=== PATIENT | female | born 1990 | race Caucasian/White ===

== ENCOUNTER → 2020-07-16 | Outpatient (CLI) | payer SELFPAY | LOC: M LABSMTC 08:30 | PROVIDERS: ATTEND Pediatrics | DX: Z20.828 Contact with and (suspected) exposure to other viral communicable diseases (principal) ==

== ENCOUNTER → 2022-05-31 | Outpatient (CLI) | payer OTHER | LOC: M WHC 13:37 | PROVIDERS: ATTEND Advanced Practice Midwife | DX: N97.9 Female infertility, unspecified (principal); Z31.69 Encounter for other general counseling and advice on procreation ==

== ENCOUNTER → 2022-06-28 | Outpatient (CLI) | payer OTHER | LOC: M PLAIMG 06:55 | PROVIDERS: ATTEND Advanced Practice Midwife | DX: Q51.810 Arcuate uterus (principal); N97.2 Female infertility of uterine origin; N94.6 Dysmenorrhea, unspecified; M47.816 Spondylosis without myelopathy or radiculopathy, lumbar region; M43.17 Spondylolisthesis, lumbosacral region ==

== ENCOUNTER → 2022-07-05 | Outpatient (CLI) | payer OTHER ==
[2022-07-05 14:11] LABS: PROGESTERONE 0.48 NG/ML
[2022-07-05 14:12] LABS: FOLLICLE STIMULATING HORMONE 5.5 mIU/ML; FREE T4 1.2 NG/DL (0.89-1.76)
[2022-07-05 14:13] LABS: ESTRADIOL 56.8 PG/ML; LUTEINIZING HORMONE 3.4 mIU/ML; PROLACTIN 4.8 NG/ML
[2022-07-05 14:15] LABS: THYROID STIMULATING HORMONE 2.766 uIU/ML (0.55-4.78)
== END ==
LOC: M PLALAB 10:32
PROVIDERS: ATTEND Advanced Practice Midwife
DX: Z31.69 Encounter for other general counseling and advice on procreation (principal); N97.9 Female infertility, unspecified